=== PATIENT | female | born 2005 | race Caucasian/White ===

== ENCOUNTER 2024-01-20 15:13 | Outpatient (CLI) | payer MEDICAID | END 2024-01-20 15:14 | disposition home or self-care (01) | LOC: ULT 15:13 | DX: N92.0 Excessive and frequent menstruation with regular cycle (principal); N83.201 Unspecified ovarian cyst, right side; R93.89 Abnormal findings on diagnostic imaging of other specified body structures | CPT/HCPCS: 76856; 93976 ==

== ENCOUNTER 2024-04-16 12:06 | Outpatient (CLI) | payer MEDICAID | END 2024-04-16 12:07 | disposition home or self-care (01) | LOC: ULT 12:06 | PROVIDERS: ATTEND Student in an Organized Health Care Education/Training Program | DX: R22.2 Localized swelling, mass and lump, trunk (principal) | CPT/HCPCS: 76999 ==

== ENCOUNTER 2024-05-02 12:53 | Outpatient (CLI) | payer MEDICAID ==
[~2024-05-02 12:53] MED LIST: Iopamidol 370 76% 100 ML VIAL ONE
== END 2024-05-02 12:54 | disposition home or self-care (01) ==
LOC: CT 12:53
PROVIDERS: ATTEND Student in an Organized Health Care Education/Training Program
DX: R22.2 Localized swelling, mass and lump, trunk (principal); D17.1 Benign lipomatous neoplasm of skin and subcutaneous tissue of trunk
CPT/HCPCS: 70491; Q9967